=== PATIENT | female | born 1955 | race African-American/Black ===

== ENCOUNTER 2016-12-01 09:46 | Outpatient (CLI) | payer BC | END 2016-12-01 18:09 | disposition home or self-care (01) | LOC: SMA 09:46 | DX: N60.12 Diffuse cystic mastopathy of left breast (principal); N60.11 Diffuse cystic mastopathy of right breast | CPT/HCPCS: 76641; G0204 ==

== ENCOUNTER 2018-01-26 11:49 | Outpatient (CLI) | payer BC | END 2018-01-26 20:29 | disposition home or self-care (01) | LOC: SMA 11:49 | DX: Z12.31 Encounter for screening mammogram for malignant neoplasm of breast (principal); N63.20 Unspecified lump in the left breast, unspecified quadrant; N63.10 Unspecified lump in the right breast, unspecified quadrant | CPT/HCPCS: 76641; 77067 ==

== ENCOUNTER 2019-02-06 09:32 | Outpatient (CLI) | payer BC | END 2019-02-06 21:06 | disposition home or self-care (01) | LOC: SMA 09:32 | DX: Z12.31 Encounter for screening mammogram for malignant neoplasm of breast (principal) | CPT/HCPCS: 76641; 77067 ==

== ENCOUNTER 2020-03-20 08:34 | Outpatient (CLI) | payer BC | END 2020-03-20 20:46 | disposition home or self-care (01) | LOC: SMA 08:34 | DX: Z12.31 Encounter for screening mammogram for malignant neoplasm of breast (principal) | CPT/HCPCS: 76641; 77067 ==